=== PATIENT | female | born 1995 | race Caucasian/White ===

== ENCOUNTER 2017-11-29 18:32 | Emergency (ER) | payer OTHER ==
[2017-11-29 19:53] VITALS: BP 124/61
--- NOTE | 2017-11-29 22:11 | UC ---
UC General HPI - HPI Summary HPI Summary: awoke with an awareness of lump in the right side of her neck. No fever, no sore throat, no cough or night sweats room mate with mono over the past weeks. - History of Current Complaint Chief Complaint: UCGeneralIllness Stated Complaint: LUMP ON RIGHT SHOULDER Time Seen by Provider: 11/29/17 21:52 Hx Obtained From: Patient Hx Last Menstrual Period: 11/29/17 Onset/Duration: Sudden Onset, Lasting Days - 1 Timing: Constant Onset Severity: Moderate Current Severity: Moderate Pain Intensity: 6 - Allergy/Home Medications Allergies/Adverse Reactions: Allergies Allergy/AdvReac Type Severity Reaction Status Date / Time No Known Allergies Allergy Verified 05/21/16 13:51 Home Medications: Home Medications Sertraline HCl [Zoloft] 25 mg PO DAILY 11/29/17 [History Confirmed 11/29/17] PMH/Surg Hx/FS Hx/Imm Hx Previously Healthy: Yes - Surgical History Surgical History: Yes Surgery Procedure, Year, and Place: TONSILLECTOMY 2017 - Family History Known Family History: Positive: Hypertension - Social History Lives: Dormitory/Roommates Alcohol Use: Occasionally Substance Use Type: None Smoking Status (MU): Never Smoked Tobacco Review of Systems ENT: Other - sore nodes right posterior cervical chain. Is Patient Immunocompromised?: No All Other Systems Reviewed And Are Negative: Yes Physical Exam Triage Information Reviewed: Yes Appearance: Well-Appearing, Pain Distress - mild Vital Signs: Initial Vital Signs Temp 98.3 F 11/29/17 19:45 Pulse 61 11/29/17 19:45 Resp 16 11/29/17 19:45 BP 124/61 11/29/17 19:45 Pulse Ox 100 11/29/17 19:45 Eyes: Positive: Conjunctiva Clear ENT: Positive: Pharynx normal, TMs normal Neck: Positive: Supple, Nontender, Enlarged Nodes @ - right posterior cervical chain with 3 mobile subcentimeter nodes. Above medial right clavicle has 1.5 x 2 cm mobile compressible tender node without overlying erythema. Respiratory: Positive: Lungs clear, Normal breath sounds Cardiovascular: Positive: RRR, No Murmur Abdomen Description: Positive: Nontender, No Organomegaly, Soft. Negative: Hepatomegaly, Splenomegaly Musculoskeletal Exam: Normal Neurological Exam: Normal Skin Exam: Normal Course/Dx - Course Course Of Treatment: observation and monitoring of new onset lymphadenopathy. - Differential Dx - Multi-Symptom Differential Diagnoses: Other - lymphadenopathy Provider Diagnoses: right posterior cervical lymphadenopathy Discharge - Sign-Out/Discharge Documenting (check all that apply): Discharge - Discharge Plan Condition: Stable Disposition: HOME Patient Education Materials: Lymphadenopathy (ED) Referrals: Non Staff,Doctor [Primary Care Provider] - Additional Instructions: As discussed, the pattern of lymph nodes is most consistent with a chain of nodes that might suggest infection with [place], the virus that causes mono. You might progress to more symptoms, or these might gradually resolve over the next 3 to 4 weeks. Use ibuprofen as needed for discomfort, and follow up for further testing if your symptoms evolve. - Billing Disposition and Condition Condition: STABLE Disposition: HOME
== END 2017-11-29 22:19 | disposition home or self-care (01) ==
LOC: UCCORT 18:32
DX: R59.1 Generalized enlarged lymph nodes (principal)
CPT/HCPCS: 99211; G0463